=== PATIENT | female | born 1985 ===

== ENCOUNTER → 2017-12-10 | Outpatient (CLI) | payer BC ==
--- NOTE | 2017-12-10 22:05 | MRI ---
MRI right shoulder without contrast INDICATION: Shoulder pain M 25.511 limited range of motion TECHNIQUE: Noncontrast MR imaging right shoulder standard protocol FINDINGS: Subscapularis and long head bicep are intact. No fracture or dislocation. Minimal hypertrophy of the AC joint. No displaced labral tear. Supraspinatus and infraspinatus are intact. No active inflammation. No destructive osseous lesion. Minimal grade 1 marbling of the rotator cuff muscle bellies. IMPRESSION: Minimal AC joint hypertrophy No acute internal derangement of the shoulder Electronically signed by: Woo Stephenson MD 12/10/2017 10:04 PM CDT
== END ==
LOC: MRI 13:25
PROVIDERS: ATTEND Family Medicine
DX: M25.511 Pain in right shoulder (principal)